=== PATIENT | female | born 1955 | race Two or more races ===

== ENCOUNTER 2021-09-30 14:10 | Outpatient (CLI) | payer OTHER | END 2021-09-30 14:11 | disposition home or self-care (01) | LOC: NUCLEAR 14:10 | PROVIDERS: ATTEND Internal Medicine | DX: M81.0 Age-related osteoporosis without current pathological fracture (principal); M54.59 Other low back pain; Z13.820 Encounter for screening for osteoporosis ==

== ENCOUNTER → 2021-09-30 | Outpatient (CLI) | payer OTHER | END | disposition home or self-care (01) | LOC: NUCLEAR 09-17 13:30 → MAMO-SONO 09:38 → NUCLEAR 13:00 | PROVIDERS: ATTEND Emergency Medicine Pediatric Emergency Medicine | DX: I10 Essential (primary) hypertension (principal); E03.8 Other specified hypothyroidism; E78.9 Disorder of lipoprotein metabolism, unspecified; E66.8 Other obesity; Z12.31 Encounter for screening mammogram for malignant neoplasm of breast; Z13.820 Encounter for screening for osteoporosis; M54.59 Other low back pain; Z01.810 Encounter for preprocedural cardiovascular examination ==

== ENCOUNTER 2022-03-11 15:10 | Outpatient (CLI) | payer OTHER | END 2022-03-11 15:13 | disposition home or self-care (01) | LOC: LAB 15:10 | PROVIDERS: ATTEND Radiology Diagnostic Radiology | DX: K92.1 Melena (principal) ==

== ENCOUNTER 2022-03-25 08:54 | Outpatient (CLI) | payer OTHER | END 2022-03-25 08:56 | disposition home or self-care (01) | LOC: TOM 08:54 | PROVIDERS: ATTEND Internal Medicine | DX: R10.31 Right lower quadrant pain (principal); K92.1 Melena | CPT/HCPCS: 74177; Q9965 ==

== ENCOUNTER 2023-04-08 10:45 | Outpatient (CLI) | payer OTHER | END 2023-04-08 10:51 | disposition home or self-care (01) | LOC: TOM 10:45 | DX: H90.3 Sensorineural hearing loss, bilateral (principal); H90.0 Conductive hearing loss, bilateral | CPT/HCPCS: 70481; Q9965 ==

== ENCOUNTER 2023-06-04 05:00 | Day surgery (SDC) | payer OTHER ==
[~2023-06-04 05:00] MED LIST: CLONIDINE HCL0.2 MG PO; CRESTOR5 MG PO; TOPROL XL25 M1 PO
[2023-06-04] MEDS ORDERED: CILOXAN5 ML OTIC (08:49)
[2023-06-04] MEDS ORDERED: CEPHALEXIN500 MG PO (08:49)
== END 2023-06-04 11:55 | disposition home or self-care (01) ==
LOC: CIR.AMB 05:00
PROVIDERS: ATTEND Otolaryngology Otology & Neurotology
DX: H80.91 Unspecified otosclerosis, right ear (principal); H90.A11 Conductive hearing loss, unilateral, right ear with restricted hearing on the contralateral side; Z20.822 Contact with and (suspected) exposure to COVID-19

== ENCOUNTER 2023-10-22 11:32 | Outpatient (CLI) | payer OTHER ==
[~2023-10-22 11:32] MED LIST changes: +CEPHALEXIN500 MG PO; +CILOXAN5 ML OTIC
== END 2023-10-22 11:40 | disposition home or self-care (01) ==
LOC: MAMO-SONO 11:32
PROVIDERS: ATTEND Internal Medicine
DX: Z12.31 Encounter for screening mammogram for malignant neoplasm of breast (principal)

== ENCOUNTER → 2023-11-29 | Outpatient (CLI) | payer OTHER | END | disposition home or self-care (01) | LOC: NUCLEAR 10-22 13:00 | PROVIDERS: ATTEND Internal Medicine | DX: M81.0 Age-related osteoporosis without current pathological fracture (principal); M89.9 Disorder of bone, unspecified ==

== ENCOUNTER 2024-02-01 11:01 | Outpatient (CLI) | payer OTHER | END 2024-02-01 11:07 | disposition home or self-care (01) | LOC: RAD 11:01 | PROVIDERS: ATTEND Internal Medicine | DX: M54.50 Low back pain, unspecified (principal); M25.551 Pain in right hip ==

== ENCOUNTER 2024-11-28 12:38 | Outpatient (CLI) | payer OTHER | END 2024-11-28 12:46 | disposition home or self-care (01) | LOC: MRI 12:38 | PROVIDERS: ATTEND Internal Medicine Rheumatology | DX: M23.205 Derangement of unspecified medial meniscus due to old tear or injury, unspecified knee (principal) | CPT/HCPCS: 73721 ==

== ENCOUNTER 2024-12-08 12:21 | Outpatient (CLI) | payer OTHER | END 2024-12-08 12:24 | disposition home or self-care (01) | LOC: MAMO-SONO 12:21 | PROVIDERS: ATTEND Obstetrics & Gynecology | DX: N60.11 Diffuse cystic mastopathy of right breast (principal); N60.12 Diffuse cystic mastopathy of left breast ==

== ENCOUNTER 2025-09-25 09:34 | Outpatient (CLI) | payer OTHER | END 2025-09-25 09:39 | disposition home or self-care (01) | LOC: RAD 09:34 | PROVIDERS: ATTEND Internal Medicine | DX: M23.221 Derangement of posterior horn of medial meniscus due to old tear or injury, right knee (principal); M23.231 Derangement of other medial meniscus due to old tear or injury, right knee; Q65.89 Other specified congenital deformities of hip; I10 Essential (primary) hypertension; E11.29 Type 2 diabetes mellitus with other diabetic kidney complication; E11.42 Type 2 diabetes mellitus with diabetic polyneuropathy; E11.51 Type 2 diabetes mellitus with diabetic peripheral angiopathy without gangrene; E03.9 Hypothyroidism, unspecified; Z12.31 Encounter for screening mammogram for malignant neoplasm of breast; Z13.820 Encounter for screening for osteoporosis; E78.9 Disorder of lipoprotein metabolism, unspecified ==